=== PATIENT | female | born 1955 | race Caucasian/White ===

== ENCOUNTER 2019-02-26 09:02 | Emergency (ER) | payer OTHER ==
[~2019-02-26] VITALS: Ht 157.5 cm; Wt 92.0 kg
[2019-02-26] MEDS ORDERED: METF-960 PO (09:08)
[2019-02-26] MEDS ORDERED: ASPI81 PO (09:08)
[2019-02-26] MEDS ORDERED: LOSA25TA41 PO (09:08)
[2019-02-26 09:31] LABS: GLUCOSE,POINT OF CARE 107 MG/DL (70-110)
[2019-02-26] MEDS ORDERED: ACETAMINOPHEN 500 MG TABLET PO ONE (10:00)
[2019-02-26 12:58] VITALS: BP 112/66
== END 2019-02-26 13:02 | disposition home or self-care (01) ==
LOC: EMS 09:03
DX: S16.1XXA Strain of muscle, fascia and tendon at neck level, initial encounter (principal); S00.91XA Abrasion of unspecified part of head, initial encounter; E11.9 Type 2 diabetes mellitus without complications; Z79.82 Long term (current) use of aspirin; Z79.84 Long term (current) use of oral hypoglycemic drugs; W07.XXXA Fall from chair, initial encounter; Y93.89 Activity, other specified; Y92.89 Other specified places as the place of occurrence of the external cause; Y99.8 Other external cause status
CPT/HCPCS: 70450; 72125